=== PATIENT | female | born 1950 | race Caucasian/White ===

== ENCOUNTER 2021-10-02 06:37 | Inpatient (IN) | payer OTHER ==
[~2021-10-02] VITALS: Ht 165.1 cm; Wt 108.9 kg
[2021-10-02] MEDS ORDERED: DIOVAN320 MG (06:44)
[2021-10-02] MEDS ORDERED: TOPROL XL50 M1 (06:45)
[2021-10-02] MEDS ORDERED: GLUMETZA500 MG (06:45)
[2021-10-02] MEDS ORDERED: ACID REDUCER20 M1 (06:45)
[2021-10-02] MEDS ORDERED: PEPCID AC10 MG (06:45)
[2021-10-02] MEDS ORDERED: LEVOTHYROXINE25 MCG (06:45)
[2021-10-17] MEDS ORDERED: DIOVAN320 MG PO (16:13)
[2021-10-17] MEDS ORDERED: ULTRAM50 MG PO (16:13)
[2021-10-17] MEDS ORDERED: ABANEU-SL TABL1 EACH SL (16:13)
[2021-10-17] MEDS ORDERED: PROTEINEX-18 LI30 ML PO (16:13)
[2021-10-17] MEDS ORDERED: TOPROL XL50 M1 PO (16:13)
[2021-10-17] MEDS ORDERED: LEVOTHYROXINE125 MCG PO (16:13)
[2021-10-17] MEDS ORDERED: RESTORIL15 MG PO (16:13)
[2021-10-17] MEDS ORDERED: GABAPENTIN300 MG PO (16:13)
[2021-10-17] MEDS ORDERED: ACID REDUCER20 M1 PO (16:13)
[2021-10-17] MEDS ORDERED: FUSION PLUS CA1 EACH PO (16:13)
[2021-10-17] MEDS ORDERED: TRAZODONE HCL50 MG PO (16:13)
== END 2021-10-17 16:31 | disposition home or self-care (01) | DRG 330 ==
LOC: ER 06:37 → SURG 16:42 → SURH 16:42
PROVIDERS: Surgery; ADMIT Internal Medicine Geriatric Medicine; ATTEND Internal Medicine Geriatric Medicine
PROC: 30233N1 Transfusion of Nonautologous Red Blood Cells into Peripheral Vein, Percutaneous Approach (ICD-10-PCS; 2021-10-02)
PROC: 02HV33Z Insertion of Infusion Device into Superior Vena Cava, Percutaneous Approach (ICD-10-PCS; 2021-10-03)
PROC: 0D1L4Z4 Bypass Transverse Colon to Cutaneous, Percutaneous Endoscopic Approach (ICD-10-PCS; principal; 2021-10-06 12:15)
PROC: 30233R1 Transfusion of Nonautologous Platelets into Peripheral Vein, Percutaneous Approach (ICD-10-PCS; 2021-10-09)
DX: C20 Malignant neoplasm of rectum (principal); C78.7 Secondary malignant neoplasm of liver and intrahepatic bile duct; D62 Acute posthemorrhagic anemia; E86.0 Dehydration; E03.9 Hypothyroidism, unspecified; I11.9 Hypertensive heart disease without heart failure; D63.0 Anemia in neoplastic disease; D69.6 Thrombocytopenia, unspecified; E78.00 Pure hypercholesterolemia, unspecified; E87.8 Other disorders of electrolyte and fluid balance, not elsewhere classified; E11.9 Type 2 diabetes mellitus without complications; Z93.3 Colostomy status; Z20.822 Contact with and (suspected) exposure to COVID-19; E88.09 Other disorders of plasma-protein metabolism, not elsewhere classified; F32.A Depression, unspecified; F41.9 Anxiety disorder, unspecified; E66.01 Morbid (severe) obesity due to excess calories